=== PATIENT | male | born 1980 | race Caucasian/White ===

== ENCOUNTER 2017-01-03 10:00 | Emergency (ER) | payer BC ==
[~2017-01-03] VITALS: Wt 108.0 kg
[2017-01-03] MEDS ORDERED: FAMOTIDINE 20 MG TAB PO STA (12:07)
--- NOTE | 2017-01-03 12:21 | ERD ---
ER Documentation Chief Complaint Date/Time DATE: 01/03/17 TIME: 12:18 Chief Complaint L SIDE ABD PAIN SINCE YESTERDAY. NO DIARRHEA. NAUSEA AND VOMITING. HPI This is a 36-year-old male who presents to the emergency department today complaining of left-sided abdominal pain that has been intermittent since yesterday. He has not taken any medication for the pain. Patient states "I think I have been drinking too much alcohol". Denies any nausea vomiting diarrhea, fevers or chills. Denies any cough. ROS All systems reviewed and are negative except as per history of present illness. Medications Home Meds Active Scripts Ibuprofen* (Motrin*) 600 Mg Tab, 600 MG PO Q6, #30 TAB Prov:KING GUDINO PA-C 01/03/17 Famotidine* (Pepcid*) 20 Mg Tablet, 20 MG PO BID for 4 Days, #14 TAB Prov:KING GUDINO PA-C 01/03/17 Physical Exam Vitals Vital Signs Date Time Temp Pulse Resp B/P Pulse Ox O2 Delivery O2 Flow Rate FiO2 01/03/17 10:04 98.8 79 20 117/62 97 Physical Exam Const: No acute distress Head: Atraumatic Eyes: Normal Conjunctiva ENT: Normal External Ears, Nose and Mouth. Neck: Full range of motion..~ No meningismus. Resp: Clear to auscultation bilaterally. No absent breath sounds. No wheezing. Cardio: Regular rate and rhythm, no murmurs Abd: Soft, epigastric and left upper quadrant tenderness non distended. Normal bowel sounds. No tenderness at McBurney's. No right lower quadrant pain. No left lower quadrant pain. Skin: No petechiae or rashes Back: No midline or flank tenderness. No CVA tenderness. Neur: Awake and alert Psych: Normal Mood and Affect Result Diagram: 01/03/17 1220 01/03/17 1220 Results 24 hrs Laboratory Tests Test 01/03/17 12:20 Alanine Aminotransferase (ALT/SGPT) 23IU/L Albumin 4.2g/dl Albumin/Globulin Ratio 1.27 Alkaline Phosphatase 73IU/L Anion Gap 13 Aspartate Amino Transf (AST/SGOT) 18IU/L Basophils # 0.010^3/ul Basophils % 0.3% Blood Urea Nitrogen 12mg/dl Calcium Level 9.2mg/dl Carbon Dioxide Level 30mmol/L Chloride Level 104mmol/L Creatinine 0.63mg/dl Direct Bilirubin 0.00mg/dl Eosinophils # 0.110^3/ul Eosinophils % 1.7% Globulin 3.30g/dl Glucose Level 91mg/dl Hematocrit 43.4% Hemoglobin 13.9g/dl Indirect Bilirubin 0.1mg/dl Lipase 44U/L Lymphocytes # 1.710^3/ul Lymphocytes % 28.7% Mean Corpuscular Hemoglobin 27.9pg Mean Corpuscular Hemoglobin Concent 32.0g/dl Mean Corpuscular Volume 87.1fl Mean Platelet Volume 11.8fl Monocytes # 0.410^3/ul Monocytes % 6.1% Neutrophils # 3.710^3/ul Neutrophils % 62.9% Nucleated Red Blood Cells # 0.010^3/ul Nucleated Red Blood Cells % 0.0/100WBC Platelet Count 85707^3/UL Potassium Level 4.1mmol/L Red Blood Count 4.9810^6/ul Red Cell Distribution Width 13.2% Sodium Level 143mmol/L Total Bilirubin 0.1mg/dl Total Protein 7.5g/dl Urine Bilirubin NEGATIVE Urine Clarity CLEAR Urine Color LT. YELLOW Urine Glucose NEGATIVE% Urine Hemoglobin NEGATIVE Urine Ketones NEGATIVE Urine Leukocyte Esterase NEGATIVE Urine Nitrite NEGATIVE Urine Specific Frontier 1.015 Urine Total Protein NEGATIVE Urine Urobilinogen 0.2 E.U./dL Urine pH 6.0 White Blood Count 5.910^3/ul Current Medications Medications (Trade) Dose Ordered Sig/Shira Route PRN Reason Start Time Stop Time Status Last Admin Dose Admin Famotidine (Pepcid) 20 mg ONCE STAT PO 01/03/17 12:07 01/03/17 12:10 DC 01/03/17 12:24 Acetaminophen/ Hydrocodone Bitart ([place] (5/325)) 1 tab ONCE ONCE PO 01/03/17 12:30 01/03/17 12:31 DC 01/03/17 12:24 DIAGNOSTIC IMAGING REPORT Patient: EMMETT SHARMA : 1980 Age: 36 Sex: M MR #: [id number] DOS: 01/03/17 1207 Ordering MD: KING GUDINO PA-C Location: [facility] Room/Bed: PROCEDURE: CT Abdomen and Pelvis without contrast. CLINICAL INDICATION: Left upper quadrant pain TECHNIQUE: CT scan of the abdomen and pelvis without contrast was performed on a multidetector high-resolution CT scanner. The patient was scanned without intravenous contrast. Coronal and sagittal reformatted images were obtained from the axial source images. Images were reviewed on a high-resolution PACS workstation. The total exam CTDI equals 15.09 mGy and the total exam DLP equals 959.38 mGy-cm. One or more of the following dose reduction techniques were used: Automated exposure control. Adjustment of the mA and/or kV according to patient size. Use of iterative reconstruction technique. COMPARISON: None FINDINGS: CT abdomen: The lung bases are clear. 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 The liver is located in the left upper quadrant. Stomach is located in the right upper quadrant. The liver is normal in size and density without focal mass or intrahepatic biliary dilatation. The spleen is normal in size and homogeneous in density. The stomach is partially collapsed, but is grossly unremarkable. The pancreas as visualized is normal. The gallbladder and biliary tree are unremarkable and there is no evidence for biliary dilatation. The adrenal glands are symmetric and normal. The kidneys are symmetrically unremarkable as well. There are a few punctate 2-3 mm nonobstructing stones in the right kidney. The aorta is of normal caliber. There is no retroperitoneal lymphadenopathy. The celestino hepatis region is clear. The bowel and mesentery, as visualized, are equally unremarkable. CT pelvis: The small bowel loops situated within the pelvis are unremarkable. There is a normal appendix. The pelvic organs are normal. The pelvic sidewalls and inguinal regions are clear. The sigmoid colon and rectum are unremarkable. No mass, lymphadenopathy, or free fluid is seen. No acute inflammation is seen. No osteolytic or osteoblastic lesion is detected. IMPRESSION: 1. Situs inversus totalis. 2. A few punctate 2-3 mm nonobstructing stones in the right kidney. 3. Normal appendix. RPTAT: BB .Rocky Ho MD, Date Time Electronically viewed and signed by .Rocky Ho MD, MD on 01/03/2017 13:11 .O/ CC: KING GUDINO PA-C Procedures/[facility] This a 36-year-old male who presents to the emergency department today complaining of left-sided abdominal pain for the past day. Patient had epigastric and left upper quadrant tenderness on physical exam. He has recently started drinking approximately one 12 pack of beer per day. He is afebrile and otherwise well-appearing however given patient's history did obtain laboratory work as well as a CT Laboratory work shows no elevated white blood cell count. His hemoglobin is very mildly decreased. Electrolytes are within normal limits. Glucose is within normal limits. Liver functions within normal limits. Lipase is within normal limits. UA is negative for infection or hematuria. CT abdomen pelvis noncontrast shows situs inversus totalis. There are a few punctate 2-3 mm nonobstructing stones in the right kidney. There is a normal appendix. Pancreas as visualized is normal. Gallbladder and biliary tree are unremarkable and there is no evidence for biliary dilatation. Small bowel loops and pelvis are unremarkable. There is no mass, lymphadenopathy or free fluid seen. There is no acute infarct inflammation that is acute seen. Patient has left-sided abdominal pain of uncertain etiology although the pain is located mostly in the left upper quadrant which given his situs inversus totalis may be related to location of his liver and his current alcohol abuse. Patient may also have gastritis secondary to alcohol abuse. There is no evidence to suggest acute surgical abdomen at this time. Patient was given [place] here in the emergency department. Patient will be given a prescription for Pepcid, Naprosyn for home. He was counseled and instructed to stop drinking alcohol. I also educated the patient on his CT scan and his situs inversus. Patient was unaware of this previously. This is the patient's first visit to the emergency department. At this time the patient is stable for discharge and outpatient management. Patient should follow up with their PCP in the next 1-2 days. They may return to the emergency department sooner for any persistent or worsening of symptoms. Patient understood and agreed with the plan. Discussed the patient with Dr. Hinds and she is in agreement with the plan. Departure Diagnosis: Primary Impression: Abdominal pain Abdominal location: left upper quadrant Qualified Code: R10.12 - Left upper quadrant pain Condition: KING Matias PA-C Jan 03, 2017 12:21
[2017-01-03] MEDS ORDERED: HYDROCODONE/APAP (5/325) TAB PO ONE (12:30)
[2017-01-03 12:37] LABS: ADD SCAN DIFF NO
[2017-01-03 12:42] LABS: BASOPHILS % 0.3 % (0.0-2.0); EOSINOPHILS # 0.1 10^3/ul (0.0-0.5); EOSINOPHILS % 1.7 % (0.0-7.0); HEMATOCRIT 43.4 % (42.0-52.0); HEMOGLOBIN 13.9 g/dl (14.0-18.0); LYMPHOCYTES # 1.7 10^3/ul (0.8-2.9); LYMPHOCYTES % 28.7 % (15.0-51.0); MEAN CORPUSCULAR HEMOGLOBIN 27.9 pg (29.0-33.0); MEAN CORPUSCULAR VOLUME 87.1 fl (82.0-101.0); MEAN PLATELET VOLUME 11.8 fl (7.4-10.4); MONOCYTE # 0.4 10^3/ul (0.3-0.9); MONOCYTES % 6.1 % (0.0-11.0); NEUTROPHIL # 3.7 10^3/ul (1.6-7.5); NEUTROPHILS % 62.9 % (39.0-77.0); PLATELET COUNT 205 10^3/UL (140-415); RED BLOOD COUNT 4.98 10^6/ul (4.70-6.10); RED CELL DISTRIBUTION WIDTH 13.2 % (11.5-14.5); WHITE BLOOD COUNT 5.9 10^3/ul (4.8-10.8)
[2017-01-03 12:49] LABS: ALBUMIN 4.2 g/dl (3.3-4.9)
[2017-01-03 12:50] LABS: POTASSIUM 4.1 mmol/L (3.5-5.1)
[2017-01-03 12:51] LABS: ADD UMIC NO; URINE BILIRUBIN (Dip) NEGATIVE (NEGATIVE); URINE BLOOD (Dip) NEGATIVE (NEGATIVE); URINE COLOR LT. YELLOW (YELLOW); URINE GLUCOSE (Dip) NEGATIVE (NEGATIVE); URINE KETONES (Dip) NEGATIVE (NEGATIVE); URINE LEUKOCYTE ESTERASE (Dip) NEGATIVE (NEGATIVE); URINE NITRITE (Dip) NEGATIVE (NEGATIVE); URINE TOTAL PROTEIN (Dip) NEGATIVE (NEGATIVE); URINE UROBILINOGEN (Dip) 0.2 E.U./dL (0.1-1.0)
[2017-01-03 12:52] LABS: ALBUMIN/GLOBULIN RATIO 1.27; BILIRUBIN,INDIRECT 0.1 mg/dl (0-1.1); BILIRUBIN,TOTAL 0.1 mg/dl (0.2-1.3); CREATININE 0.63 mg/dl (0.61-1.24); TOTAL PROTEIN 7.5 g/dl (6.1-8.1)
[2017-01-03 12:53] LABS: CALCIUM 9.2 mg/dl (8.4-10.2)
--- NOTE | 2017-01-03 13:11 | RADRPT ---
PROCEDURE: CT Abdomen and Pelvis without contrast. CLINICAL INDICATION: Left upper quadrant pain TECHNIQUE: CT scan of the abdomen and pelvis without contrast was performed on a multidetector hig h-resolution CT scanner. The patient was scanned without intravenous contrast. Coronal and sagittal reformatted images were obtained from the axial source images. Images were reviewed on a high-resol [employer] PACS workstation. The total exam CTDI equals 15.09 mGy and the total exam DLP equals 959.38 mG y-cm. One or more of the following dose reduction techniques were used: Automated exposure control. Adjustment of the mA and/or kV according to patient size. Use of iterative reconstruction technique. COMPARISON: None FINDINGS: CT abdomen: The lung bases are clear. 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 The liver is located in the l eft upper quadrant. Stomach is located in the right upper quadrant. The liver is normal in size and density without focal mass or intrahepatic biliary dilatation. The spleen is normal in size and ho mogeneous in density. The stomach is partially collapsed, but is grossly unremarkable. The pancrea s as visualized is normal. The gallbladder and biliary tree are unremarkable and there is no eviden ce for biliary dilatation. The adrenal glands are symmetric and normal. The kidneys are symmetrica lly unremarkable as well. There are a few punctate 2-3 mm nonobstructing stones in the right kidney. The aorta is of normal caliber. There is no retroperitoneal lymphadenopathy. The celestino hepatis maryanne on is clear. The bowel and mesentery, as visualized, are equally unremarkable. CT pelvis: The small bowel loops situated within the pelvis are unremarkable. There is a normal appendix. The pelvic organs are normal. The pelvic sidewalls and inguinal regions are clear. The sigmoid colon and rectum are unremarkable. No mass, lymphadenopathy, or free fluid is seen. No acute inflammatio n is seen. No osteolytic or osteoblastic lesion is detected. IMPRESSION: 1. Situs inversus totalis. 2. A few punctate 2-3 mm nonobstructing stones in the right kidney. 3. Normal appendix. RPTAT: BB .Rocky Ho MD, MD Date Time Electronically viewed and signed by .Rocky Ho MD, MD on 01/03/2017 13:11 .O/
[2017-01-03] MEDS ORDERED: FAMO-18 PO (13:36)
[2017-01-03] MEDS ORDERED: IBUP-1542 PO (13:36)
== END 2017-01-03 14:05 | disposition home or self-care (01) ==
LOC: FTE 10:00
DX: R10.12 Left upper quadrant pain (principal)
CPT/HCPCS: 36415; 74176; 80053; 81003; 83690; 85025; Z7502; Z7610